=== PATIENT | male | born 1960 | race Caucasian/White ===

== ENCOUNTER → 2024-08-03 | Outpatient (CLI) | payer BC, SELFPAY ==
[2024-08-03 08:10] LABS: Collection Type, Urine Clean Catch
[2024-08-03 08:41] LABS: Basophils # (Auto) 0.1 Thou/mm3 (0.0-0.2); Basophils % (Auto) 1 % (0-2.5); Eosinophils # (Auto) 0.6 Thou/mm3 (0.0-0.5); Eosinophils % (Auto) 8 % (0-10); Hematocrit 42.2 % (41.0-53.0); Hemoglobin 14.3 g/dL (13.5-16.0); Immature Granulocytes % (Auto) 0 % (0-0); Immature Granulocytes Auto 0.02 Thou/mm3 (0.00-0.00); Lymphocytes # (Auto) 1.4 Thou/mm3 (1.0-4.8); Lymphocytes % (Auto) 18 % (10-50); Mean Corpuscular HGB Conc 33.9 g/dl (31.0-37.0); Mean Corpuscular Hemoglobin 32.8 pg (25.0-35.0); Mean Corpuscular Volume 97 fL (80-100); Monocytes # (Auto) 0.6 Thou/mm3 (0.0-0.8); Monocytes % (Auto) 9 % (0-12); Neutrophils # (Auto) 4.8 Thou/mm3 (1.8-7.7); Neutrophils % (Auto) 64 % (37-80); Nucleated Red Blood Cell % 0 /100 WBC (0); Platelet Count 207 Thou/mm3 (140-440); Red Blood Count 4.36 Miln/mm3 (4.50-5.90); White Blood Count 7.4 Thou/mm3 (3.8-10.6)
[2024-08-03 08:44] LABS: Glucose Estimated Average 114 mg/dL (80-131); Hemoglobin A1C 5.6 % Hgb (4.8-6.0)
[2024-08-03 08:45] LABS: Prostate Specific Antigen 1.73 ng/mL (0-4.00)
[2024-08-03 08:47] LABS: Bilirubin,Urine Negative (Negative); Blood,Urine Negative (Negative); Clarity,Urine Clear (Clear/Hazy); Color,Urine Yellow (Lt Yel-Yel); Culture Indicated,Urine Not Indicated; Glucose, Urine Negative (Negative); Ketones,Urine Negative (Negative); Leukocyte Esterase,Urine Negative (Negative); Nitrite,Urine Negative (Negative); PH,Urine 5.5 (5.0-7.0); Protein,Urine Trace (Neg - Trace); RBC,Urine 2 /hpf (0-3); Specific Gravity,Urine 1.033 (1.001-1.035); Squamous Epithelial Cell,Urine < 1 /hpf (0-5); Urobilinogen,Urine Negative mg/dL (0.0-1.0); WBC,Urine 2 /hpf (0-5)
[2024-08-03 08:56] LABS: Alanine Aminotransferase 28 U/L (10-49); Albumin, Serum 4.5 gm/dL (3.4-4.8); Albumin/Globulin Ratio 2.5 (1.2-2.2); Alkaline Phosphatase 97 U/L (46-116); Anion Gap 7 (7-16); Aspartate Amino Transferase 21 U/L (0-34); BUN/Creatinine Ratio 13 Ratio (12-20); Bilirubin,Total 0.6 mg/dL (0.3-1.2); Blood Urea Nitrogen 16 mg/dL (9-23); Calcium 9.6 mg/dL (8.3-10.6); Calcium (Corrected) 9.6 mg/dL (8.5-10.1); Carbon Dioxide 29.3 mMol/L (20.0-31.0); Chloride 105 mMol/L (98-107); Cholesterol 149 mg/dL (132-200); Creatinine (Component) 1.2 mg/dL (0.6-1.3); Globulin 1.8 gm/dL (2.3-3.5); Glucose 115 mg/dL (74-106); HDL Cholesterol 50 mg/dL (40-60); LDL Cholesterol,Calculated 72 mg/dL (0-130); Osmolality,Calculated 283 (275-295); Potassium 4.8 mMol/L (3.4-5.1); Sodium 141 mMol/L (136-145); Thyroid Stimulating Hormone 1.66 uIU/mL (0.55-4.78); Total Protein 6.3 gm/dL (5.7-8.2); Triglycerides 134 mg/dL (30-150); eGFR > 60 See Note
== END | disposition home or self-care (01) ==
LOC: COPL 07:08
PROVIDERS: PCP Family Medicine; Referring Provider Nurse Practitioner Family; Visit Provider Nurse Practitioner Family
DX: Z00.00 Encounter for general adult medical examination without abnormal findings (principal); E78.2 Mixed hyperlipidemia; R73.03 Prediabetes
CPT/HCPCS: 36415; 80053; 80061; 81001; 83036; 84153; 84443; 85025

== ENCOUNTER 2024-11-14 17:12 | Emergency (ER) | payer BC, SELFPAY ==
[2024-11-14 17:46] VITALS: BP 137/72; PULSE 70; RESP 18; TEMP 36.9; O2SAT 95
--- NOTE | 2024-11-14 18:08 | XR_ITS ---
Examination: CT brain head without contrast. 2-D sagittal coronal reconstructions Date and time of exam:November 14, 2024 1834 hrs. Indications: Onset right periorbital edema today CTDI: vol (mGy):54.7 DLP: (mGycm):1189 Technique: Multiple CT axial sections of the brain have been obtained, 5 mm slice thickness. Contrast has not been administered. 2-D sagittal, coronal reconstructions have been obtained Low dose protocols were performed. One or more of the following dose reduction techniques were used; automated exposure control, adjustment of the mA and/or KV according to patient size, use of iterative reconstruction technique. Findings: No significant ventricular enlargement. Intra-axial or extra-axial hemorrhage density is not seen. No mass effect or midline shift Basal cisterns are not remarkable. Fourth ventricle is midline. Cranial vault intact. Acute right maxillary sinusitis Soft tissue swelling lateral and inferior to the right orbit measuring up to 6 mm in thickness No neda abscess No retro-orbital inflammation Impression: Negative for acute hemorrhage, mass effect or midline shift Soft tissue cellulitis pattern lateral and inferior to the right orbit
[2024-11-14 18:32] LABS: Basophils # (Auto) 0.1 Thou/mm3 (0.0-0.2); Basophils % (Auto) 1 % (0-2.5); Eosinophils # (Auto) 0.6 Thou/mm3 (0.0-0.5); Eosinophils % (Auto) 9 % (0-10); Hematocrit 42.8 % (41.0-53.0); Hemoglobin 14.3 g/dL (13.5-16.0); Immature Granulocytes % (Auto) 1 % (0-0); Immature Granulocytes Auto 0.03 Thou/mm3 (0.00-0.00); Lymphocytes # (Auto) 1.3 Thou/mm3 (1.0-4.8); Lymphocytes % (Auto) 20 % (10-50); Mean Corpuscular HGB Conc 33.4 g/dl (31.0-37.0); Mean Corpuscular Hemoglobin 32.6 pg (25.0-35.0); Mean Corpuscular Volume 98 fL (80-100); Monocytes # (Auto) 0.5 Thou/mm3 (0.0-0.8); Monocytes % (Auto) 8 % (0-12); Neutrophils # (Auto) 4.1 Thou/mm3 (1.8-7.7); Neutrophils % (Auto) 62 % (37-80); Nucleated Red Blood Cell % 0 /100 WBC (0); Platelet Count 224 Thou/mm3 (140-440); RDW Standard Deviation 45.9 fL (35.1-43.9); Red Blood Count 4.38 Miln/mm3 (4.50-5.90); White Blood Count 6.5 Thou/mm3 (3.8-10.6)
[2024-11-14 18:59] LABS: Sed Rate (ESR) 19 mm/hr (0-20)
[2024-11-14 20:05] LABS: Alanine Aminotransferase 23 U/L (10-49); Albumin, Serum 4.4 gm/dL (3.4-4.8); Albumin/Globulin Ratio 1.8 (1.2-2.2); Alkaline Phosphatase 98 U/L (46-116); Anion Gap 4 (7-16); Aspartate Amino Transferase 22 U/L (0-34); BUN/Creatinine Ratio 13 Ratio (12-20); Bilirubin,Total 0.4 mg/dL (0.3-1.2); Blood Urea Nitrogen 14 mg/dL (9-23); C-Reactive Protein 1.4 mg/dL (0.0-0.9); Calcium 9.4 mg/dL (8.3-10.6); Calcium (Corrected) 9.4 mg/dL (8.5-10.1); Chloride 110 mMol/L (98-107); Creatinine (Component) 1.1 mg/dL (0.6-1.3); Globulin 2.4 gm/dL (2.3-3.5); Glucose 145 mg/dL (74-106); Osmolality,Calculated 286 (275-295); Potassium 4.4 mMol/L (3.4-5.1); Sodium 142 mMol/L (136-145); Total Protein 6.8 gm/dL (5.7-8.2); eGFR > 60 See Note
--- NOTE | 2024-11-14 21:54 | EDNOTE_ITS ---
ED Skin Abcess FB-RME/HPI General Chief complaint: Eye Problems Stated complaint: CELLULITIS R) EYE; SENT BY PCP Time Seen by Provider: 11/14/24 17:50 Arrival date/time: 11/14/24 17:12 RME / HPI RME / HPI narrative: DR. JANA BLOCK ED EVALUATION: 64 y/o male presents to ED c/o swelling below the right eye, itching and pain behind the right eye x 1 day. Patient reports feeling as if his eye is being pushed out. Describes pain as moderate to severe at 7/10. Patient was seen at a clinic 4 days ago and told he has nasal polyps and an infection. He was treated with Amoxicillin, and has also tried Tylenol and Advil at home. No other concerns or complaints expressed at this time. Related Data Previous Rx's ?Medication ?Instructions ?Recorded hydrocodone 5 mg-acetaminophen 325 1 tab PO TID PRN pa in 4 days #12 11/14/24 mg tablet tabs mupirocin 2 % topical ointment 1 applic topical TID Na anushka 11/14/24 impetigo 10 days #15 grams sulfamethoxazole 800 1 tab PO BID Periorbital mg-trimethoprim 160 mg tablet cellulitis 7 days #14 ta bs (Bactrim DS) Allergies Allergy/AdvReac Type Severity Reaction Status Date / Time No Known Allergies Allergy Verified 11/14/24 17:15 Review of Systems Review of Systems Systems Reviewed: All systems reviewed, normal except as documented Narrative Review of Systems: Gen: No fever, no chills, no weight loss EYES: No discharge, no visual changes, Positive pain and itching of right eye HEENT: No ear pain, no congestion, no sore throat PULM: No shortness of breath, no cough, no congestion CV: No chest pain, no dyspnea on exertion, no palpitations GI: No nausea, no vomiting, no diarrhea, no pain, no constipation : No frequency, no urgency, no dysuria Musc/skel: No joint pain, no back pain Skin: No rash. Warm and dry. Psyc: No hallucinations, no depression Heme/Lymph: No easy bleeding or bruising tendencies Neuro: No weakness, no headache Past Medical History Social History SMOKING STATUS: Never smoker ED Exam Narrative Physical exam: GENERAL APPEARANCE: alert and oriented x 4, well-developed, well-nourished, no acute distress VITALS: All vitals were reviewed and the pulse ox is 95% on room air, which is normal according to my interpretation. HEENT: Normocephalic, atraumatic; pupils equal, round, reactive to light; EOMI; mucous membranes pink, moist; oropharynx clear NECK: Supple LUNGS: CTABL; no wheezes, no rales, no rhonchi HEART: Regular rate, regular rhythm; normal S1, S2; no murmurs ABDOMEN: non distended; normal BS; soft, no tenderness, no guarding, no rebound; no masses, no organomegaly, no hernia BACK: No CVA tenderness EXTREMITIES: atraumatic; no edema NEUROLOGIC: awake; alert and oriented x4; cranial nerves II-XII grossly intact; no focal sensory or motor deficits PSYCHIATRIC: appropriate mood and affect SKIN: Cellulitis to nose w/ overlying impetigo, right-sided periorbital cellulitis, mainly anterior portion of right eye. Course Quality Measures none Orders Category Date Time Status CT head/brain wo con Stat Exams 11/14/24 18:08 Completed Blood Culture (Lab) Stat Lab 11/14/24 18:20 Results CBC Stat Lab 11/14/24 18:16 Completed CMP [Comprehensive Metabolic Panel] Stat Lab 11/14/24 18:16 Completed CRP [C-Reactive Protein] Stat Lab 11/14/24 18:16 Completed ESR [Sed Rate (ESR)] Stat Lab 11/14/24 18:16 Completed Lactate (Lactic Acid) Stat Lab 11/14/24 18:16 Completed Bacitracin Oint pkt Med 11/14/24 21:53 Discontinued 1 gm TOP X1 ONE Vital Signs Vital signs: Vital Signs Temperature 98.5 F 11/14/24 17:46 Pulse Rate 70 11/14/24 17:46 Respiratory Rate 18 11/14/24 17:46 Blood Pressure 137/72 H 11/14/24 17:46 Pulse Oximetry (%) 95 11/14/24 17:46 Oxygen Delivery Method Room Air 11/14/24 17:46 Skin / Abscess / Foreign Body MDM Narrative MDM Narrative:: Scribe Attestation: Rebecca Soto, joe scribing for and in the presence of Dr. Simental. Provider Notation: Although this document has been carefully reviewed, there may still be some phonetic and other typographical errors. These errors are purely grammatical due to imperfections in the software program and should not be construed in any way to compromise the substance of the patient's medical care during this visit. Patient data External records reviewed:: [facility] previous records (No recent ED records to review) Clinical information provided by:: patient Social determinants that could affect healthcare access:: none Patient has the following chronic illnesses:: None reported How is presenting disease/condition affected by chronic disease/condition?: no chronic disease (None reported) Evaluation data The following diagnostics were reviewed and interpreted by me:: lab results (EOS 0.6, Immature grans 0.03, Immature grans 1%, RDW Std Deviation 45.9, RBC 4.38L) and radiology exam(s) Lab and/or radiology exams considered but not ordered:: None Interpretation Summary: CBC is normal, ESR is normal, CMP is normal, Lactic Acid is normal, CRP is 1.4, according to my interpretation. Patient: MERT LE. Record#: [id number] Birthdate: 1960 Age/Sex: 64 / M Location: [facility] Attending Dr: Ordering Physician: Paulina Bonds PA-C Date of Service: 11/14/24 Procedure(s): CT head/brain wo con Accession Number(s): [id number] cc: Rohith Choi MD; Paulina Bonds PA-C; Tim Lepe MD~ Examination: CT brain head without contrast. 2-D sagittal coronal reconstructions Date and time of exam:November 14, 2024 1834 hrs. Indications: Onset right periorbital edema today CTDI: vol (mGy):54.7 DLP: (mGycm):1189 Technique: Multiple CT axial sections of the brain have been obtained, 5 mm slice thickness. Contrast has not been administered. 2-D sagittal, coronal reconstructions have been obtained Low dose protocols were performed. One or more of the following dose reduction techniques were used; automated exposure control, adjustment of the mA and/or KV according to patient size, use of iterative reconstruction technique. Findings: No significant ventricular enlargement. Intra-axial or extra-axial hemorrhage density is not seen. No mass effect or midline shift Basal cisterns are not remarkable. Fourth ventricle is midline. Cranial vault intact. Acute right maxillary sinusitis Soft tissue swelling lateral and inferior to the right orbit measuring up to 6 mm in thickness No neda abscess No retro-orbital inflammation Impression: Negative for acute hemorrhage, mass effect or midline shift Soft tissue cellulitis pattern lateral and inferior to the right orbit Dictated By: Rohith Choi MD Signed By: <Electronically signed by Rohith Choi MD in OV> 11/14/24 1918 Medications / Prescriptions Medications or Prescriptions considered but not ordered:: None Medication administrations:: Medication Administration History Discontinued Medications Bacitracin (Bacitracin Oint 1 Gm Packet) 1 gm TOP X1 ONE Stop: 11/14/24 21:54 Last Admin: 11/14/24 22:17 Dose: Not Given Documented By: CVL Non-Admin Reason: Change of Condition See above if any Consultations Consultation(s) initiated? (list below): No Diagnosis Skin/Abscess Differential Diagnosis: abscess of skin or subcutaneous tissue, viral exanthem, dermatophytosis, herpes zoster, cellulitis, impetigo and contact dermatitis Most likely diagnosis given after review of the tests above:: Impetigo, Periorbital cellulitis Admission Indicated Admission indicated?: not indicated Explain why admission is indicated or not indicated:: Does not meet admission criteria Admission Request Was there a request for admission?: No Disposition Plan Disposition Plan: Discharge Discharge Attestation Discharge Attestation: The patient and all family members were given an opportunity to ask questions and understood the discharge instructions. Discharge instructions specifically effects, indications for sooner follow up or return to the emergency department, and the expected course of current diagnosis. Patient condition: Stable Discharge Plan Plan Patient Disposition: HOME (Self Care) Disposition Comment: Stable for discharge home Patient condition on transfer: Stable Prescriptions/Referrals Prescriptions/Med Rec: New mupirocin 2 % ointment 1 applic topical TID 10 Days Qty: 15 0RF sulfamethoxazole-trimethoprim [Bactrim DS] 800-160 mg tablet 1 tab PO BID 7 Days Qty: 14 0RF hydrocodone-acetaminophen 5-325 mg tablet 1 tab PO TID MDD 3 tabs PRN (Reason: pain) 4 Days Qty: 12 0RF Referrals: Tim Lepe MD [Primary Care Provider] - In 1 week Problem List Clinical Impression: Cellulitis, periorbital, Impetigo Patient/Caregiver Discharge Instructions Discharge Activity: activity as tolerated Education Materials: Understanding Impetigo, ED Periorbital Cellulitis Additional Instructions: Please return to the emergency department for any worsening or any further medical problems and we will help you. Otherwise you should follow-up with your primary care doctor within the next several days. Be sure to watch out for pain when you move your eyes from left to right or up and down. This is a sign that you may be developing orbital cellulitis. If you have pain with movement of your eyes you should return to the ER right away. Print Language: Setswana Stand Alone Forms: Norma Award Info., Patient Portal Info Letter
[2024-11-14 22:21] VITALS: RESP 18
== END 2024-11-14 22:22 | disposition home or self-care (01) ==
PROVIDERS: Physician Assistant; Emergency Provider Emergency Medicine; PCP Family Medicine
DX: L03.213 Periorbital cellulitis (principal); L01.00 Impetigo, unspecified
CPT/HCPCS: 36415; 70450; 80053; 83605; 85025; 85652; 86140; 87040; 99284